=== PATIENT | female | born 2000 ===

== ENCOUNTER 2022-01-02 13:13 | Emergency (ER) | payer MEDICAID ==
[2022-01-02] MEDS: Albuterol/Ipratropium 3.0-0.5 MG/3 ML Neb Soln NEB ONE (13:40)
== END 2022-01-02 14:30 | disposition home or self-care (01) ==
LOC: LL.ED 13:13
DX: J45.901 Unspecified asthma with (acute) exacerbation (principal)
CPT/HCPCS: 94640; 99284; J7620-GY